=== PATIENT | male | born 1960 | race Two or more races ===

== ENCOUNTER 2017-04-27 21:28 | Inpatient (IN) | payer SELFPAY ==
[2017-04-27] MEDS ORDERED: ATEN50TA2 PO (21:44)
[2017-04-27] MEDS ORDERED: OMEP40CA2 PO (21:44)
[2017-04-27] MEDS ORDERED: MIDAZOLAM INJ 5 MG/ML VIAL (J2250) As Ordered ONE (21:48)
[2017-04-27 21:58] LABS: MEAN CORPUSCULAR HEMOGLOBIN 31.6 pg (27.0-33.0); MEAN CORPUSCULAR HGB CONC 33.6 g/dl (32.0-36.5); MEAN CORPUSCULAR VOLUME 93.9 fl (80.0-96.0); PLATELET COUNT, AUTOMATED 159 10^3/uL (150-450); RED CELL DISTRIBUTION WIDTH 12.7 % (11.5-14.5)
[2017-04-27] MEDS ORDERED: NOREPINEPHRINE 4 MG/4 ML AMP As Ordered ONE (21:58)
[2017-04-27 21:59] LABS: POS COUNT POS FLAG; POSITIVE DIFF POS FLAG; POSITIVE MORPH POS FLAG
[2017-04-27 22:00] LABS: ADD MANUAL DIFFER YES; DIFF SLIDE NUMBER 340
[2017-04-27 22:05] LABS: ABG BASE EXCESS -22.6 (-2.0-2.0); ABG HCO3 11.8 MEQ/L (22.0-26.0); ABG STANDARD HCO3 8.1 MEQ/L (22.0-26.0); ABG TOTAL CO2 13.8 MEQ/L (22.0-29.0)
[2017-04-27 22:07] LABS: ABG PARTIAL PRESSURE CO2 66.6 mmHg (35.0-45.0); ABG PARTIAL PRESSURE O2 40.6 mmHg (75.0-100.0); ABG pH (ARTERIAL) 6.865 UNITS (7.350-7.450)
[2017-04-27 22:12] LABS: INR 1.33
[2017-04-27] MEDS ORDERED: NOREPINEPHRINE BITARTRATE 8 MG in D5W 500 ML IV SCH ×2 (22:15→22:27)
[2017-04-27 22:25] LABS: ALBUMIN 1.4 GM/DL (3.2-5.2); ALBUMIN/GLOBULIN RATIO 1.27 (1.00-1.93); ALKALINE PHOSPHATASE 41 U/L (45-117); ALT/SGPT 46 U/L (12-78); AMYLASE 52 U/L (25-115); ANION GAP 8 MEQ/L (8-16); AST/SGOT 54 U/L (15-37); BILIRUBIN,DIRECT < 0.1 MG/DL (0.0-0.2); BILIRUBIN,TOTAL 0.2 MG/DL (0.2-1.0); BLOOD UREA NITROGEN 9 MG/DL (7-18); CREATININE FOR GFR 0.52 MG/DL (0.70-1.30); GLOMERULAR FILTRATION RATE > 60.0 (>56)
[2017-04-27] MEDS ORDERED: MIDAZOLAM INJ 2 MG/2 ML VIAL (J2250) IV PRN (22:30)
[2017-04-27] MEDS ORDERED: MORPHINE 2 MG/ML 1ML SYRINGE IV PRN (22:30)
[2017-04-27 22:32] LABS: BANDS 4 % (< 11); EOSINOPHILS 3 % (0-5)
[2017-04-27 22:35] LABS: ABG HCO3 12.8 MEQ/L (22.0-26.0); ABG PARTIAL PRESSURE CO2 68.7 mmHg (35.0-45.0); ABG PARTIAL PRESSURE O2 44.6 mmHg (75.0-100.0); ABG STANDARD HCO3 8.8 MEQ/L (22.0-26.0); ABG TOTAL CO2 14.9 MEQ/L (22.0-29.0); ABG pH (ARTERIAL) 6.889 UNITS (7.350-7.450)
[2017-04-27 22:47] LABS: CARBON DIOXIDE LEVEL 37 MEQ/L (21-32); CHLORIDE LEVEL 123 MEQ/L (98-107); POTASSIUM SERUM 1.6 MEQ/L (3.5-5.1); SODIUM LEVEL 168 MEQ/L (136-145)
[2017-04-27 22:48] LABS: GLUCOSE, FASTING 195 MG/DL (70-105)
[2017-04-27 22:49] LABS: CALCIUM LEVEL < 5.0 MG/DL (8.5-10.1)
[2017-04-27 22:53] LABS: TOTAL PROTEIN 2.5 GM/DL (6.4-8.2)
[2017-04-27 23:21] LABS: ABG BASE EXCESS -19.8 (-2.0-2.0); ABG HCO3 14.9 MEQ/L (22.0-26.0); ABG PARTIAL PRESSURE CO2 84.1 mmHg (35.0-45.0); ABG PARTIAL PRESSURE O2 45.5 mmHg (75.0-100.0); ABG STANDARD HCO3 9.5 MEQ/L (22.0-26.0); ABG TOTAL CO2 17.5 MEQ/L (22.0-29.0); ABG pH (ARTERIAL) 6.866 UNITS (7.350-7.450)
[2017-04-27 23:27] VITALS: BP 73/49
[2017-04-27 23:28] LABS: MEAN CORPUSCULAR HEMOGLOBIN 31.7 pg (27.0-33.0); MEAN CORPUSCULAR HGB CONC 32.6 g/dl (32.0-36.5); MEAN CORPUSCULAR VOLUME 97.2 fl (80.0-96.0); PLATELET COUNT, AUTOMATED 114 10^3/uL (150-450); RED CELL DISTRIBUTION WIDTH 12.6 % (11.5-14.5); WHITE BLOOD COUNT 11.1 10^3/uL (4.0-10.0)
[2017-04-27 23:30] LABS: POSITIVE DIFF POS FLAG; POSITIVE MORPH POS FLAG
[2017-04-27 23:31] LABS: BLASTS POS FLAG; POS COUNT POS FLAG
[2017-04-27 23:33] LABS: ADD MANUAL DIFFER YES; DIFF SLIDE NUMBER 345
[2017-04-27] MEDS ORDERED: SODIUM BICARBONATE 8.4% INJ 50 ML SYRINGE IV STA ×3 (23:33→23:51)
[2017-04-27] MEDS ORDERED: EPINEPHrine 1MG/10ML SYRINGE 1.5IN IV STA ×6 (23:33→23:51)
[2017-04-27 23:38] LABS: INR 1.81
[2017-04-27] MEDS ORDERED: MIDAZOLAM INJ 5 MG/ML VIAL (J2250) IV STA (23:51)
[2017-04-27] MEDS ORDERED: ATROPINE SULF 1MG/10ML SYRINGE (J0461) IV STA (23:51)
[2017-04-27 23:54] LABS: ALBUMIN 2.1 GM/DL (3.2-5.2); ALBUMIN/GLOBULIN RATIO 0.95 (1.00-1.93); ALKALINE PHOSPHATASE 79 U/L (45-117); ALT/SGPT 111 U/L (12-78); AMYLASE 189 U/L (25-115); ANION GAP 21 MEQ/L (8-16); AST/SGOT 151 U/L (15-37); BILIRUBIN,DIRECT < 0.1 MG/DL (0.0-0.2); BILIRUBIN,TOTAL 0.4 MG/DL (0.2-1.0); BLOOD UREA NITROGEN 15 MG/DL (7-18); CALCIUM LEVEL 6.4 MG/DL (8.5-10.1); CARBON DIOXIDE LEVEL 18 MEQ/L (21-32); CHLORIDE LEVEL 106 MEQ/L (98-107); CREATININE FOR GFR 1.61 MG/DL (0.70-1.30); GLOMERULAR FILTRATION RATE 47.7 (>56); GLUCOSE, FASTING 381 MG/DL (70-105); POTASSIUM SERUM 4.1 MEQ/L (3.5-5.1); SODIUM LEVEL 145 MEQ/L (136-145); TOTAL PROTEIN 4.3 GM/DL (6.4-8.2)
[2017-04-27 23:57] LABS: BANDS 4 % (< 11)
[2017-04-28] MEDS ORDERED: NS 1,000 ML IV ONE
[2017-04-28] MEDS ORDERED: ATROPINE SULF 1MG/10ML SYRINGE (J0461) IV STA (00:08)
[2017-04-28] MEDS ORDERED: SODIUM BICARBONATE 8.4% INJ 50 ML SYRINGE IV STA ×2 (00:08)
[2017-04-28] MEDS ORDERED: EPINEPHrine 1MG/10ML SYRINGE 1.5IN IV STA ×5 (00:08)
[2017-04-28] MEDS ORDERED: DOPamine HCL 400 MG in APPROPRIATE DILUENT 1 EA IV SCH (00:45)
--- NOTE | 2017-04-28 07:55 | REP ---
Portable chest, single AP view, the patient supine, and 07:00 p.m.: There are no comparisons. There are diffuse bilateral infiltrates. There is a defibrillator paddle superimposed over the right lung. Cardiac size is enlarged. There are stabilization rods and pedicle screws in the cervical spine. There is a nasogastric tube with the tip terminating satisfactorily in the abdominal left upper quadrant. Place precise location of the tip is excluded at the inferior film margin. Impression: Diffuse bilateral infiltrates and cardiomegaly. Signed by Kwaku Kaye MD 04/28/2017 07:46 A
--- NOTE | 2017-04-28 07:57 | REP ---
Portable chest, 11:17 p.m., single AP view, the patient supine: Comparison is 10:07 p.m. earlier this same night. There is a right subclavian central venous catheter as an interval change with the tip at the confluence of the superior vena cava and right atrium. There is no pneumothorax or pleural fluid collection. Diffuse bilateral infiltrates and cardiomegaly are again noted. Surgical hardware in the cervical spine is again noted. Signed by Kwaku Kaye MD 04/28/2017 07:48 A
[2017-04-28] MEDS ORDERED: IPRATROPIUM 0.5MG/ALBUTEROL 2.5MG INH SOL UD 3ML (DUONEB)(J7620) NEB SCH (08:00)
[2017-04-28] MEDS ORDERED: PANTOPRAZOLE 40MG INJ (PROTONIX) (C9113) IV SCH (09:00)
[2017-04-28] MEDS ORDERED: CHLORHEXIDINE GLUCONATE 0.12 % 15ML UDC (PERIDEX ORAL RINSE) MT SCH (09:00)
--- NOTE | 2017-04-28 10:33 | ECGEPIP ---
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
--- NOTE | 2017-04-28 11:00 | CCN ---
DATE: 04/27/2017 I was called to the emergency department to evaluate this 57-year-old male found in full arrest at home. Emergency medical services performed resuscitation with cardiopulmonary resuscitation (CPR), repeated electric shocks , epinephrine for six doses, amiodarone 300 mg followed by 150 mg IV, in the emergency department. The patient again suffered ventricular tachycardia, ventricular fibrillation, arrest. CPR was administered. He was shocked, given epinephrine, IV bicarb times two doses. An endotracheal tube was placed and an orogastric tube was placed. On my arrival, the monitor was showing a sinus rhythm at 94. Blood pressure was reading 137/104. At bedside, HEENT: His oral mucosa was pink. There was an endotracheal tube at 23 cm. The face and neck were cyanotic. There was meningismus. Heart sounds were distant, but audible regular, some extra beats. Lungs: Diffuse coarse rhonchi appreciated bilaterally. Abdomen was soft. No palpable masses. Extremities were flaccid and cyanotic. Pulses palpable barely using a Doppler. Initial arterial blood gas returned with a pH of 7.85, pCO2 66, and pO2 of 40. This on mechanical ventilatory support with assist control rate of 24, tidal volume 400, FIO2 100%, PEEP of 5. A chest x-ray was reviewed and shows hazy bilateral infiltrates. Formal reports remain pending. The primary problem requiring critical attention was cardiopulmonary arrest secondary to cardiac arrhythmia. 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 He did not undergo cardiac interventions recommended him at that time and had been having palpitations. At this point, his rhythms are quite malignant and recurrent. Will continue resuscitative efforts. Metabolic acidosis. Will send serum lactate and administer additional bicarb. Hypercarbia. Will increase minute ventilation as possible. I suspect a significant pulmonary contusion secondary to resuscitation efforts. While in the emergency department, the patient's heart rate became slow. Pulses were lost. CPR was initiated. He was given additional epinephrine and bicarbonate. Heart rate resume to a bradycardic rhythm and pressors were started. IV access was limited. His heart rate again slowed. CPR was initiated again. IV bicarb was given as well as epinephrine. The patient became bradycardic with a palpable pulse. Levophed was changed to dopamine in an effort to increase heart rate. A central line was placed promptly in his right subclavian site and without difficulty. The pressors were infused through the central line. A chest x-ray performed after this procedure showed that the endotracheal tube and central line were in reasonable position and progression of the bilateral infiltrates. Again , formal report is unavailable. An arterial blood gas returned showing a pH of 6.88, pCO2 68, and pO2 44. At this point, the family was informed of the patient very poor prognosis given his poor response to aggressive resuscitative efforts. While attempting to allow the family to visit, the patient became bradycardic and lost pulses once again. CPR was started again. He was given epinephrine, atropine and bicarbonate, and resumed a bradycardic pulse with wide complexes. His arterial blood gases were then again obtained. The pH remained low at 6.86, pCO2 was 84, and pO2 45. Despite maximal ventilation and administration of IV bicarbonate, the patient's heart rate again fell. He became hypotensive. After 3 hours of aggressive resuscitation, the patient's family was informed that he was not responding to maximal medical therapy and that further efforts were felt to be futile. The patient's was brought into the room. He became bradycardic and asystolic at about 11:45 p.m. and was declared . One hour and thirty seven minutes was spent at bedside in critical care beyond any time spent for the performance of procedures. KAVIN
--- NOTE | 2017-04-28 16:42 | RO ---
DATE OF PROCEDURE: 04/28/2017 PREOPERATIVE DIAGNOSIS: Cardiogenic shock. POSTOPERATIVE DIAGNOSIS: Cardiogenic shock. PROCEDURE PERFORMED: Right subclavian central venous catheter placement. SURGEON: Dr. Jose Abad MOVIE EXTRA: ANESTHESIA: DESCRIPTION OF PROCEDURE: The patient was seen in the emergency department in extremis, having been resuscitated from full cardiopulmonary arrest and requiring pressors for bradycardia and hypotension. The emergency placement of a central line was felt emergently necessary. The skin overlying the right subclavian vein was prepped with Chloraprep, draped in a sterile fashion. A 25-gauge needle was used to raise a skin wheal of 1% lidocaine. Thereafter, a 17-gauge introducer needle was placed in through the skin and into the right subclavian vein. Free return of venous blood was obtained. A vascular tip guidewire was advanced, a small incision made adjacent to the guidewire. A triple-lumen catheter was placed over the guidewire to a distance of 18 cm. The wire was removed. The catheter was secured in place, a sterile dressing was applied and a postprocedure chest x-ray confirmed adequate placement. There were no complications. KAVIN
== END 2017-04-27 23:40 | disposition expired | DRG 201 ==
LOC: EDBD 21:28 → M ED 21:28 → M ED INP 22:27 → UNDOADMIN 22:27
PROVIDERS: ADMIT Internal Medicine Pulmonary Disease; ATTEND Internal Medicine Pulmonary Disease
PROC: 02HV33Z Insertion of Infusion Device into Superior Vena Cava, Percutaneous Approach (ICD-10-PCS; principal; 2017-04-27)
DX: I45.6 Pre-excitation syndrome (principal); I46.9 Cardiac arrest, cause unspecified; R57.0 Cardiogenic shock; E87.2 Acidosis